=== PATIENT | male | born 1950 | race Caucasian/White ===

== ENCOUNTER 2024-05-08 11:14 | Observation (INO) ==
[2024-05-08 11:43] LABS: ABS Eosinophils 0.2 10^3/uL (0.0-0.5); ABS Lymphocytes 0.9 10^3/uL (1.0-4.8); ABS Monocytes 0.5 10^3/uL (0.0-1.1); ABS Neutrophils 5.2 10^3/uL (1.5-7.6); ABS Nucleated RBC 0.01 10^3/ul; Eosinophil % 2.8 %; Hematocrit 44.6 % (38-53); Hemoglobin 15.1 g/dL (13.2-16.3); Lymphocyte % 12.9 %; Mean Corpuscular Hemoglobin 30.9 pg (27-33); Mean Corpuscular Hgb Conc 33.9 g/dL (31-36); Mean Platelet Volume 7.9 fL (7.5-11.2); Nucleated Red Blood Cells % 0.1 %/100WBC (0.0-0.8); Platelet Count 173 10^3/uL (150-450); Red Cell Distribution Width 14.7 % (12-17); White Blood Count 6.9 10^3/uL (3.6-10.2)
[2024-05-08 13:00] LABS: TSH Ultra Thyroid Stim Horm 3.27 mcIU/mL (0.34-5.60)
[2024-05-08 13:11] LABS: High Sensitivity Troponin 1 Hr 14 pg/mL (<20)
[2024-05-08 14:08] LABS: Urine Appearance Clear; Urine Bilirubin Negative (Negative); Urine Blood Negative (Negative); Urine Color Light-Yellow; Urine Glucose 4+ (>=1000 mg/dL) (Negative); Urine Ketones Negative (Negative); Urine Nitrite Negative (Negative); Urine Protein Trace (Negative); Urine Urobilinogen Negative (Negative); Urine pH 6.5 (5.0-8.0)
[2024-05-08 15:07] LABS: Albumin 4.7 g/dL (3.2-5.2); Creatinine, Serum 1.28 mg/dL (0.67-1.17); Globulin 2.3 g/dL (2-4); Magnesium 2.4 mg/dL (1.9-2.7); Potassium 4.5 mmol/L (3.5-5.0); eGFR CKD-EPI 58.4 (>60)
[2024-05-08] MEDS: Iodixanol (CONTRAST) 320 MG/ML 100 ML SDV IV ONE (19:44)
[2024-05-08] MEDS ORDERED: Ondansetron 4 mg VIAL 2 MG/ML 2 ml VIAL IV PRN (22:18)
[2024-05-08] MEDS ORDERED: Senna TAB 8.6 mg TAB PO PRN (22:18)
[2024-05-08] MEDS ORDERED: Polyethyl Glycol/Propylene Gly OPHTH.SOLN BOTH EYES PRN (22:25)
[2024-05-08] MEDS: Enoxaparin 40 MG/0.4 ML SYR SUBCUT SCH (23:01)
[2024-05-09] MEDS: CMCS: Epleronone 25 mg TAB (NF) PO SCH (08:20)
[2024-05-09] MEDS: Aspirin EC 81 mg TAB.EC (enteric coated) PO SCH (08:20)
[2024-05-09 12:18] LABS: HDL Cholesterol 52.4 mg/dL
[2024-05-09] MEDS: Lactated Ringers 1000 ml BAG 1,000 ML IV ONE (13:20)
[2024-05-09 14:50] VITALS: BP 143/87
== END 2024-05-09 15:00 | disposition home or self-care (01) ==
LOC: EDHOLD 11:14 → ED 11:14 → SUATTDRO 22:18 → EDHOLD 05-09 14:49
PROVIDERS: ADMIT Internal Medicine; ATTEND Student in an Organized Health Care Education/Training Program